=== PATIENT | male | born 1990 | race Caucasian/White ===

== ENCOUNTER 2017-05-10 01:24 | Emergency (ER) | payer MEDICAID ==
[~2017-05-10] VITALS: Ht 180.3 cm; Wt 81.6 kg
[2017-05-10 01:36] VITALS: BP_SYST 146
[2017-05-10] MEDS ORDERED: LORazepam 2 MG/ML VIAL (FOR ER USE) IM ONE (02:00)
[2017-05-10 03:03] VITALS: BP_SYST 142
== END 2017-05-10 03:05 | disposition home or self-care (01) ==
LOC: SED 01:24
DX: F41.9 Anxiety disorder, unspecified (principal); J45.909 Unspecified asthma, uncomplicated
CPT/HCPCS: 93005; 96372; 99284; J2060

== ENCOUNTER 2017-05-26 20:52 | Emergency (ER) | payer MEDICAID ==
[~2017-05-26] VITALS: Ht 175.3 cm; Wt 70.3 kg
[2017-05-26 21:32] VITALS: BP_SYST 119
== END 2017-05-26 21:32 | disposition home or self-care (01) ==
LOC: SED 20:52
DX: F07.81 Postconcussional syndrome (principal); J45.909 Unspecified asthma, uncomplicated; F41.9 Anxiety disorder, unspecified
CPT/HCPCS: 99281

== ENCOUNTER 2018-05-17 20:56 | Emergency (ER) | payer MEDICAID ==
[~2018-05-17] VITALS: Ht 175.3 cm; Wt 73.0 kg
[2018-05-17 21:46] VITALS: BP_SYST 114
[2018-05-17 23:08] VITALS: BP_SYST 114
== END 2018-05-17 23:08 | disposition home or self-care (01) ==
LOC: SED 20:56
DX: S20.211A Contusion of right front wall of thorax, initial encounter (principal); F41.9 Anxiety disorder, unspecified; J45.909 Unspecified asthma, uncomplicated; X50.9XXA Other and unspecified overexertion or strenuous movements or postures, initial encounter; Y93.89 Activity, other specified; Y92.89 Other specified places as the place of occurrence of the external cause; Y99.8 Other external cause status
CPT/HCPCS: 71100; 99283

== ENCOUNTER 2019-08-19 19:06 | Emergency (ER) | payer MEDICAID ==
[~2019-08-19] VITALS: Ht 175.3 cm; Wt 69.9 kg
[2019-08-19 19:20] VITALS: BP_SYST 139
--- NOTE | 2019-08-19 19:20 | NUR ---
Patient triaged and placed in waiting room. VSS and patient appears in no acute distress at this time. Accompanied by FAMILY MEMBER, awaiting available bed, and MD notified of need for MSE.
--- NOTE | 2019-08-19 21:15 | NUR ---
Patient to ER bed 3 to gown for evaluation. Side rails up. Report given to FRITZ COLLADO.
--- NOTE | 2019-08-19 21:17 | NUR ---
PATIENT BROUGHT IN WITH MOTHER COMPLAINING OF LEFT ARM PAIN. PATIENT REPORTS THAT HE HAD SPARRING PARTNER IN A HEAD LOCK AND HEARD A SNAP. DEFORMITY NOTED. RADIAL PULSES PRESENT. NO NUMBNESS OF TINGLING. LIMITED RANGE OF MOTION. PAIN 7/10. NO OTHER COMPLAINTS/INJURIES PER PATIENT OR NOTED. WILL CONTINUE TO MONITOR.
--- NOTE | 2019-08-19 21:29 | NUR ---
ER Dr. CARDOSO at bedside examining patient.
[2019-08-19] MEDS ORDERED: HYDROcodone/ACETAMIN 7.5-325 MG TAB PO ONE (21:30)
--- NOTE | 2019-08-19 21:45 | NUR ---
LONG ARM splint applied to LEFT ARM. RADIAL pulse noted. Capillary refill <3 seconds. Patient has ability to move non-splinted digits. Has sensation present to affected site. Skin color within normal limits. Applied for pain management control.
[2019-08-19 22:02] VITALS: BP_SYST 124
--- NOTE | 2019-08-19 22:02 | NUR ---
Patient given written and verbal discharge instructions and verbalizes understanding. ER MD discussed with patient the results and treatment provided. Patient in stable condition. ID arm band removed. Rx of IBUPROFEN given. Patient educated on pain management and to follow up with PMD. Pain Scale 2/10 Opportunity for questions provided and answered. Medication side effect fact sheet provided.
== END 2019-08-19 22:02 | disposition home or self-care (01) ==
LOC: SED 19:06
DX: S52.392A Other fracture of shaft of radius, left arm, initial encounter for closed fracture (principal); J45.909 Unspecified asthma, uncomplicated; F41.9 Anxiety disorder, unspecified; F12.90 Cannabis use, unspecified, uncomplicated; W22.8XXA Striking against or struck by other objects, initial encounter; Y93.89 Activity, other specified; Y92.89 Other specified places as the place of occurrence of the external cause; Y99.8 Other external cause status
CPT/HCPCS: 73090; 99283